=== PATIENT | male | born 1960 | race Caucasian/White ===

== ENCOUNTER 2017-10-01 17:14 | Emergency (ER) | payer OTHER ==
[~2017-10-01] VITALS: Ht 180.3 cm; Wt 115.0 kg
[2017-10-01 17:30] VITALS: BP_SYST 180; BP_DIAS 106; BP_DIAS 107; PULSE 78; PULSE 97; RESP 16; RESP 17; TEMP 99.5; O2SAT 97; O2SAT 99
[2017-10-01] MEDS ORDERED: DIPHTH/TETANUS/ACEL PERTUSSIS (BOOSTER) 0.5 ML VIAL/PFS IM ONE (17:30)
[2017-10-01] MEDS ORDERED: SODIUM CHLORIDE 0.9% FLUSH 10 ML FLUSH IVF PRN (17:30)
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
[2017-10-01] MEDS ORDERED: LIDOCAINE HCL 1% PF 10 ML VIAL INFIL ONE (18:00)
[2017-10-01] MEDS ORDERED: CEPH-460 PO (18:28)
== END 2017-10-01 19:00 | disposition home or self-care (01) ==
LOC: PHED 17:14
DX: S01.01XA Laceration without foreign body of scalp, initial encounter (principal); V49.40XA Driver injured in collision with unspecified motor vehicles in traffic accident, initial encounter; Y92.410 Unspecified street and highway as the place of occurrence of the external cause
CPT/HCPCS: 12002; 90471; 90715

== ENCOUNTER 2017-10-24 21:06 | Emergency (ER) | payer SELFPAY ==
[~2017-10-24] VITALS: Ht 180.3 cm; Wt 111.0 kg
[~2017-10-24 21:06] MED LIST: CEPH-460 PO
[2017-10-24 21:23] VITALS: BP 152/90; PULSE 90; RESP 20; TEMP 98.1; O2SAT 95
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
[2017-10-24 22:46] VITALS: BP 145/84; PULSE 84; RESP 18; O2SAT 97
== END 2017-10-24 22:54 | disposition home or self-care (01) ==
LOC: PHED 21:06
DX: S01.01XA Laceration without foreign body of scalp, initial encounter (principal); Z48.02 Encounter for removal of sutures; I10 Essential (primary) hypertension; X58.XXXA Exposure to other specified factors, initial encounter
CPT/HCPCS: 99281